=== PATIENT | female | born 1990 | race Caucasian/White ===

== ENCOUNTER 2017-06-18 14:23 | Emergency (ER) | payer OTHER ==
[~2017-06-18] VITALS: Ht 149.9 cm; Wt 49.0 kg
[2017-06-18 15:47] VITALS: BP 134/81
== END 2017-06-18 15:48 | disposition home or self-care (01) ==
LOC: ER 14:32
DX: L03.112 Cellulitis of left axilla (principal); L03.111 Cellulitis of right axilla
CPT/HCPCS: 84703; 99283; A4606; Z7610